=== PATIENT | female | born 1980 | race Caucasian/White ===

== ENCOUNTER 2016-11-11 13:51 | Emergency (ER) | payer MEDICAID, OTHER ==
[~2016-11-11] VITALS: Wt 49.5 kg
[2016-11-11] MEDS ORDERED: DIPHTH/TET/ACEL PERTUSS (ADULT) 0.5 ML VIAL IM* ONE (14:30)
[2016-11-11] MEDS ORDERED: IBUPROFEN 600 MG TAB PO ONE (14:30)
--- NOTE | 2016-11-11 15:38 | RADRPT ---
PROCEDURE: XR Left Ribs and chest CLINICAL INDICATION: Trauma TECHNIQUE: Multiple oblique views of the left ribs were obtained. A single chest radiograph was al so obtained. The images were reviewed on a PACS workstation. COMPARISON: None. FINDINGS: Cardiovascular structures: The cardiovascular silhouette appears unremarkable. Lung liang: The lung liang are clear.. Pleural spaces: No pneumothorax or pleural fluid accumulation is evident. Osseous structures: There appear to be two fractures through the left seventh rib. No other fractu res identified. IMPRESSION: 1. Fractures involving the lateral and anterior left seventh rib. 2. Otherwise, unremarkable PA chest and left rib series Physician Yunior Date Time Electronically viewed and signed by Physician Yunior on 11/11/2016 15:37 /
[2016-11-11] MEDS ORDERED: ACET1TAB40 PO (16:04)
[2016-11-11] MEDS ORDERED: NEOM28OI TP (16:04)
[2016-11-11] MEDS ORDERED: IBUP400T22 PO (16:04)
[2016-11-11] MEDS ORDERED: HYDR-906 PO (16:04)
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
== END 2016-11-11 16:24 | disposition home or self-care (01) ==
LOC: FTE 13:51
DX: S22.32XA Fracture of one rib, left side, initial encounter for closed fracture (principal); Y08.89XA Assault by other specified means, initial encounter; Z23 Encounter for immunization
CPT/HCPCS: 71100; 90471; 90715; Z7502; Z7610